=== PATIENT | male | born 1980 | race Caucasian/White ===

== ENCOUNTER 2025-04-02 15:07 | Emergency (ER) | payer SELFPAY | END 2025-04-02 16:33 | disposition home or self-care (01) | LOC: BURERS 15:07 | DX: S42.022A Displaced fracture of shaft of left clavicle, initial encounter for closed fracture (principal); S43.015A Anterior dislocation of left humerus, initial encounter; S43.035A Inferior dislocation of left humerus, initial encounter; S00.01XA Abrasion of scalp, initial encounter; S80.212A Abrasion, left knee, initial encounter; S80.211A Abrasion, right knee, initial encounter; F17.210 Nicotine dependence, cigarettes, uncomplicated; W19.XXXA Unspecified fall, initial encounter; Y92.481 Parking lot as the place of occurrence of the external cause | CPT/HCPCS: J1885 ==